=== PATIENT | male | born 1995 | race African-American/Black ===

== ENCOUNTER 2021-01-29 23:26 | Inpatient (IN) ==
[2021-01-30] MEDS ORDERED: DIPH/TET/ACEL PERT BOOSTER VACCINE 0.5 ML VIAL IM ONE (01:47)
[2021-01-30] MEDS ORDERED: PIPERACILLIN/TAZOBACTAM 3,375 MG in SODIUM CHLORIDE 0.9% 100 ML IV STA (01:47)
[2021-01-30] MEDS ORDERED: SODIUM CHLORIDE 0.9% 1,000 ML IV STA (01:48)
[2021-01-30 02:16] LABS: Basophils % 0.4 % (0.0-0.8); Eosinophils # 0.1 10*3/uL (0.0-0.87); Eosinophils % 1.3 % (0.00-10.9); Hematocrit 41.8 VOL% (42.0-52.0); Hemoglobin 13.2 GM/DL (14.0-18.0); Immature Granulocytes % 0.3 %; Immature Granulocytes Absolute 0.02 #; Lymphocytes # 1.6 10*3/uL (1.4-4.0); Lymphocytes % 19.7 % (21.2-54.2); Mean Corpuscular HGB Conc 31.6 GM/DL (32-36); Mean Corpuscular Volume 94.8 FL (87-102); Mean Platelet Volume 10.1 FL (9.6-12.0); Monocytes % 8.3 % (1.7-12.7); Platelet Count 210 T/CUMM (130-400); Red Blood Count 4.41 MC/CUMM (3.8-5.5); Red Cell Distribution Width 12.4 % (9.3-17.3); White Blood Count 7.9 T/CUMM (4-12)
[2021-01-30 02:34] LABS: Albumin 2.9 G/DL (3.4-5.0); Bilirubin,Total 0.5 MG/DL (0.20-1.00); Calcium 8.7 MG/DL (8.5-10.1); Osmolality,Calculated 278.2 MOS/KG (273-304); Potassium 3.6 MMOL/L (3.5-5.1); Total Protein 8.4 G/DL (6.4-8.2)
[2021-01-30] MEDS ORDERED: GLUCAGON 1 MG VIAL IM PRN ×2 (03:06→09:51)
[2021-01-30] MEDS ORDERED: ONDANSETRON 4 MG/2 ML VIAL IV PRN (03:06)
[2021-01-30] MEDS ORDERED: DEXTROSE 50% 25 GM/50 ML VIAL IV PRN ×2 (03:06→09:51)
[2021-01-30] MEDS: PANTOPRAZOLE 40 MG TABLET PO SCH (09:00)
[2021-01-30] MEDS: PIPERACILLIN/TAZOBACTAM 3,375 MG in SODIUM CHLORIDE 0.9% 100 ML IV SCH (09:01)
[2021-01-30] MEDS: INSULIN REGULAR 100 UNIT/ML SUBCUT SCH ×4 (09:07→23:09)
[2021-01-30] MEDS: NICOTINE 21 MG/24 HR PATCH TRANSDERM SCH (12:13)
[2021-01-30] MEDS: VANCOMYCIN INJ 1,250 MG in SODIUM CHLORIDE 0.9% 250 ML IV SCH (15:59)
[2021-01-30] MEDS ORDERED: glyBURIDE 2.5 MG TABLET PO SCH (17:00)
[2021-01-30] MEDS: metFORMIN 500 MG TABLET PO SCH (17:38)
[2021-01-31] MEDS: PIPERACILLIN/TAZOBACTAM 3,375 MG in SODIUM CHLORIDE 0.9% 100 ML IV SCH ×4 (02:30→17:53)
[2021-01-31] MEDS: VANCOMYCIN INJ 1,250 MG in SODIUM CHLORIDE 0.9% 250 ML IV SCH (03:19)
[2021-01-31 06:06] LABS: Basophils % 0.5 % (0.0-0.8); Eosinophils # 0.2 10*3/uL (0.0-0.87); Hematocrit 39.9 VOL% (42.0-52.0); Hemoglobin 13.1 GM/DL (14.0-18.0); Immature Granulocytes % 0.3 %; Immature Granulocytes Absolute 0.01 #; Lymphocytes # 1.3 10*3/uL (1.4-4.0); Lymphocytes % 34.2 % (21.2-54.2); Mean Corpuscular HGB Conc 32.8 GM/DL (32-36); Mean Corpuscular Volume 92.8 FL (87-102); Monocytes % 9.9 % (1.7-12.7); Neutrophils % 51.1 % (38.7-73.9); Platelet Count 203 T/CUMM (130-400); Red Cell Distribution Width 12.6 % (9.3-17.3); White Blood Count 3.7 T/CUMM (4-12)
[2021-01-31 06:27] LABS: Platelet Estimate Normal
[2021-01-31 06:28] LABS: Anisocytosis 1+; Macrocytosis 1+
[2021-01-31 06:34] LABS: Calcium 8.6 MG/DL (8.5-10.1); Osmolality,Calculated 285.3 MOS/KG (273-304); Potassium 3.7 MMOL/L (3.5-5.1)
[2021-01-31 06:53] LABS: Albumin 2.3 G/DL (3.4-5.0); Bilirubin,Total 0.4 MG/DL (0.20-1.00); Calcium 8.6 MG/DL (8.5-10.1); Osmolality,Calculated 285.3 MOS/KG (273-304); Potassium 3.7 MMOL/L (3.5-5.1)
[2021-01-31] MEDS: metFORMIN 500 MG TABLET PO SCH ×2 (09:13→17:53)
[2021-01-31] MEDS: PANTOPRAZOLE 40 MG TABLET PO SCH (09:14)
[2021-01-31] MEDS: INSULIN REGULAR 100 UNIT/ML SUBCUT SCH ×4 (09:14→21:30)
[2021-01-31] MEDS: GABAPENTIN 300 MG CAPSULE PO SCH ×3 (09:25→21:30)
[2021-01-31] MEDS: risperiDONE 1 MG TABLET PO SCH ×2 (09:25→21:30)
[2021-01-31] MEDS: NICOTINE 21 MG/24 HR PATCH TRANSDERM SCH (10:07)
[2021-02-01] MEDS: PIPERACILLIN/TAZOBACTAM 3,375 MG in SODIUM CHLORIDE 0.9% 100 ML IV SCH ×3 (00:42→19:09)
[2021-02-01 06:24] LABS: Calcium 8.9 MG/DL (8.5-10.1); Osmolality,Calculated 283.3 MOS/KG (273-304); Potassium 3.8 MMOL/L (3.5-5.1)
[2021-02-01] MEDS: INSULIN REGULAR 100 UNIT/ML SUBCUT SCH ×4 (08:38→21:06)
[2021-02-01] MEDS: NICOTINE 21 MG/24 HR PATCH TRANSDERM SCH (08:38)
[2021-02-01] MEDS: PANTOPRAZOLE 40 MG TABLET PO SCH (08:44)
[2021-02-01] MEDS: metFORMIN 500 MG TABLET PO SCH ×2 (08:44→16:15)
[2021-02-01] MEDS: risperiDONE 1 MG TABLET PO SCH ×2 (08:45→21:46)
[2021-02-01] MEDS: GABAPENTIN 300 MG CAPSULE PO SCH ×3 (08:45→21:46)
[2021-02-02] MEDS: PIPERACILLIN/TAZOBACTAM 3,375 MG in SODIUM CHLORIDE 0.9% 100 ML IV SCH ×3 (00:55→17:02)
[2021-02-02 06:27] LABS: Basophils % 0.5 % (0.0-0.8); Eosinophils # 0.2 10*3/uL (0.0-0.87); Hematocrit 40.5 VOL% (42.0-52.0); Hemoglobin 12.7 GM/DL (14.0-18.0); Immature Granulocytes % 0.2 %; Immature Granulocytes Absolute 0.01 #; Lymphocytes # 1.9 10*3/uL (1.4-4.0); Lymphocytes % 44.8 % (21.2-54.2); Mean Corpuscular HGB Conc 31.4 GM/DL (32-36); Mean Corpuscular Volume 95.5 FL (87-102); Mean Platelet Volume 10.1 FL (9.6-12.0); Monocytes % 12.8 % (1.7-12.7); Neutrophils % 37.7 % (38.7-73.9); Platelet Count 215 T/CUMM (130-400); Red Blood Count 4.24 MC/CUMM (3.8-5.5); Red Cell Distribution Width 12.4 % (9.3-17.3); White Blood Count 4.2 T/CUMM (4-12)
[2021-02-02 06:29] LABS: Calcium 8.8 MG/DL (8.5-10.1); Osmolality,Calculated 278.4 MOS/KG (273-304); Potassium 3.9 MMOL/L (3.5-5.1)
[2021-02-02] MEDS: INSULIN REGULAR 100 UNIT/ML SUBCUT SCH ×3 (08:10→17:02)
[2021-02-02] MEDS: metFORMIN 500 MG TABLET PO SCH ×2 (08:13→16:02)
[2021-02-02] MEDS: GABAPENTIN 300 MG CAPSULE PO SCH ×2 (08:13→16:02)
[2021-02-02] MEDS: PANTOPRAZOLE 40 MG TABLET PO SCH (08:13)
[2021-02-02] MEDS: risperiDONE 1 MG TABLET PO SCH (08:13)
[2021-02-02] MEDS: NICOTINE 21 MG/24 HR PATCH TRANSDERM SCH (10:32)
[2021-02-02 12:00] LABS: Eosinophils 4 % (0-10); Lymphocytes 46 % (20-55); Platelet Estimate Normal; Polychromasia Slight; Segmented Neutrophils 34 % (50-85); Total Cells Counted 100
[2021-02-02 18:14] VITALS: BP 138/76
== END 2021-02-02 19:46 | disposition home or self-care (01) | DRG 638 ==
LOC: N.EDINP 23:26 → N.ED 23:26 → SUATTDRO 01-30 03:06 → N.3E 01-30 04:40 → SUATTDRO 01-31 15:53
PROVIDERS: ADMIT Hospitalist; ATTEND Internal Medicine